=== PATIENT | female | born 1940 | race Caucasian/White ===

== ENCOUNTER 2021-07-08 12:22 | Outpatient (CLI) | payer MEDICARE, OTHER | END 2021-07-08 12:23 | disposition home or self-care (01) | LOC: CSHSPEC 12:22 | PROVIDERS: ATTEND Internal Medicine | DX: M54.6 Pain in thoracic spine (principal); G89.29 Other chronic pain; M50.00 Cervical disc disorder with myelopathy, unspecified cervical region; Z95.0 Presence of cardiac pacemaker; M46.04 Spinal enthesopathy, thoracic region; M43.24 Fusion of spine, thoracic region; M47.812 Spondylosis without myelopathy or radiculopathy, cervical region; Z98.890 Other specified postprocedural states | CPT/HCPCS: 71045; 72141; 72146 ==

== ENCOUNTER 2021-11-04 13:42 | Outpatient (CLI) | payer MEDICARE, OTHER | END 2021-11-04 13:43 | disposition home or self-care (01) | LOC: CSHMAMMO 13:42 | PROVIDERS: ATTEND Internal Medicine | DX: Z12.31 Encounter for screening mammogram for malignant neoplasm of breast (principal) | CPT/HCPCS: 77063; 77067 ==